=== PATIENT | male | born 1975 | race Caucasian/White ===

== ENCOUNTER 2025-01-26 05:06 | Emergency (ER) | payer OTHER ==
[~2025-01-26] VITALS: Ht 177.8 cm; Wt 95.4 kg
[2025-01-26 05:06] VITALS: BP 143/79; PULSE 92; RESP 16; TEMP 98; O2SAT 96
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
--- NOTE | 2025-01-26 08:08 | DVH ---
EXAM: CT CERVICAL WITHOUT CONTRAST INDICATION: [facility] EXAM DATE: 01/26/2025 07:04 AM COMPARISON: XY CERVICAL SPINE 3V on DOS: 01/26/25 TECHNIQUE: Multiple axial CT images of the cervical spine were obtained using bone algorithm. Sagitta l and coronal reformatting was done. Bone and soft tissue windows were reviewed. Radiation Dose Information: CT Dose: CTDI volume is 24.44 mGy. Dose-length product is 1.78 mGy*cm FINDINGS: The cervical alignment is intact. Reversal of the cervical lordosis. No acute cervical spine fracture is identified. The vertebral body heights are intact. No suspicious osseous lesions are identified. Intervertebral disc degeneration at C6-C7. No significant spinal or neural foraminal stenosis. There is no prevertebral soft tissue swelling. The lung apices are clear. IMPRESSION: 1. No evidence of acute cervical spine fracture or traumatic malalignment. 2. Mild degenerative changes in the cervical spine. All CT scans at this medical facility are performed using dose modulation techniques as appropriate t o a performed exam including the following: Automated exposure control was utilized; adjustment of th e MA and/or KV according to patient size; and use of iterative reconstruction technique.
[2025-01-26 08:51] LABS: Urine Protein, UAD TRACE (Negative)
== END 2025-01-26 08:41 | disposition left against medical advice (07) ==
LOC: EDBD 05:06 → ER 05:06
DX: M25.512 Pain in left shoulder (principal); M25.522 Pain in left elbow; M79.645 Pain in left finger(s); R42 Dizziness and giddiness; V89.2XXA Person injured in unspecified motor-vehicle accident, traffic, initial encounter; Y93.89 Activity, other specified; Y92.410 Unspecified street and highway as the place of occurrence of the external cause; Y99.8 Other external cause status
CPT/HCPCS: 70450; 72040; 72125; 73030; 73130; 81001